=== PATIENT | female | born 1990 | race Caucasian/White ===

== ENCOUNTER 2024-02-27 06:38 | Emergency (ER) | payer BC ==
[2024-02-27 06:58] VITALS: RESP 16; TEMP 97.8; O2SAT 99
[2024-02-27 07:03] VITALS: BP 124/60; PULSE 76
--- NOTE | 2024-02-27 07:28 | ERPHSYRPT ---
- History of Present Illness Time Seen by Provider: 02/27/24 07:10 Source: patient Exam Limitations: no limitations Patient Subjective Stated Complaint: pt states swelling to rt eyelid Triage Nursing Assessment: pt ambulated into the er; pt is axo x4; c/o swelling present to rt eyelid; pt states 5/10 pain to rt eye; pustule present to rt upper eyelid; redness and swelling present to rt eyelid; skin PDW; no respiratory distress; vitals wnl Physician History: This is a 34-year-old white female patient who is breast-feeding and noticed some swelling redness and discomfort in the upper eyelid on the right side. She has noticed now 2 styes within the last 48 hours. She has been using warm compresses to the area. Patient is breast-feeding. Timing/Duration: day(s) (2) Location: right eye Severity: mild Apparent Injury: no Associated Symptoms: redness (Right upper eyelid), matting, eyelid swelling (Right side mild) Chemical Exposure: No Trauma: No Welding Arc/Tanning Bed Exposure: No Allergies/Adverse Reactions: No Known Drug Allergies Allergy (Unverified 02/27/24 06:44) Home Medications: Loratadine 10 mg [Claritin 10 mg] 10 mg PO DAILY 02/27/24 [History] Multivitamin 1 each PO DAILY 02/27/24 [History] Hx Tetanus, Diphtheria Vaccination/Date Given: Yes Hx Influenza Vaccination/Date Given: No Hx Pneumococcal Vaccination/Date Given: No Immunizations Up to Date: No Travel Risk - International Travel Have you traveled outside of the country in past 3 weeks: No - Emerging Infectious Disease Are you exhibiting symptoms associated with any current EIDs: No - Review of Systems Constitutional: No Symptoms Eyes: Other (Right upper eyelid swelling redness tenderness) Ears, Nose, & Throat: No Symptoms Respiratory: No Symptoms Cardiac: No Symptoms Abdominal/Gastrointestinal: No Symptoms Genitourinary Symptoms: No Symptoms Musculoskeletal: No Symptoms Skin: No Symptoms Neurological: No Symptoms Psychological: No Symptoms Endocrine: No Symptoms Hematologic/Lymphatic: No Symptoms Immunological/Allergic: No Symptoms All Other Systems: Reviewed and Negative - Past Medical History Pertinent Past Medical History: No - Past Surgical History Past Surgical History: Yes - Female History Hx Now: No - Social History Smoking Status: Former smoker Exposure to second hand smoke: No Drug Use: none - Social Determinants of Health Will the patient participate in the screening: Yes Do you worry about a steady place to live?: No Do you have any problems with any of the following?: No known problems In the past 12 months,have you had to go without utilities?: No Transportation Issues: No Has anyone in your support network made you feel unsafe?: No Have you or anyone in your house had to go without enough: No - Nursing Vital Signs Nursing Vital Signs: Initial Vital Signs Pulse Rate 71 02/27/24 06:43 Blood Pressure 115/69 02/27/24 06:43 O2 Sat by Pulse Oximetry 99 02/27/24 06:43 Pain Scale Pain Intensity 5 - Physical Exam General Appearance: no apparent distress, alert Eye Exam: right eye: eyelid inflammation, stye (X 2 upper eyelid on the right side), left eye: normal inspection, bilateral eye: PERRL, EOMI Ears, Nose, Throat Exam: normal ENT inspection, moist mucous membranes Neck Exam: normal inspection, non-tender, supple, full range of motion Respiratory Exam: airway intact, No chest tenderness, No respiratory distress Gastrointestinal Exam: No tenderness Extremity Exam: normal inspection, normal range of motion, pelvis stable Neurologic: alert, oriented x 3, cooperative, pharmacy laboratory technician II-XII nml as tested, normal mood/affect, nml cerebellar function, nml station & gait, sensation nml Skin Exam: normal color, warm, dry Lymphatic: No adenopathy SpO2 Interpretation: normal SpO2: 99 O2 Delivery: Room Air - Course Nursing assessment & vital signs reviewed: Yes - Progress Progress: unchanged Progress Note: 02/27/24 07:25 My medical decision making in the assignment of low complexity to this patient's medical issue today is based on review of the patient's past medical history, reviewed the patient's medication list, reviewed patient drug allergy list, history present also physical findings on examination. The workup of this patient does not require laboratory radiographic studies. Counseled pt/family regarding: diagnosis, need for follow-up Medical Desision Making - Independent Historian Additional History obtained from: Spouse - Diagnostic Testing Diagnostic test were ordered, analyzed, and reviewed by me: No - Risk of complications Minimal Risk: Minimal risk of morbidity - Departure Departure Disposition: Home Clinical Impression: Hordeolum externum (stye) Condition: Stable Critical Care Time: No Referrals: JOHN NEGRETE, [facility] [Primary Care Provider] - Follow up/PCP as directed Additional Instructions: Continue warm compresses 3-4 times a day. Use Tylenol and ibuprofen for pain and fever control. Call your primary care provider today, 02/27/2024, to make arrangements for follow-up appointment in the next 3 to 5 days. Do not squeeze the styes. Gently wash the area with baby shampoo. Prescriptions: Cephalexin Mh 500 mg [Keflex 500 mg] 500 mg PO TID #21 cap
[2024-02-27] MEDS ORDERED: KEFLEX 500 MG ONE (07:39)
[2024-02-27] MEDS: KEFLEX 500 MG PO ONE (07:40)
== END 2024-02-27 07:52 | disposition home or self-care (01) ==
LOC: ED 06:38
DX: H00.011 Hordeolum externum right upper eyelid (principal); Z79.899 Other long term (current) drug therapy
CPT/HCPCS: 99282; A9270-GY